=== PATIENT | female | born 1950 | race Asian ===

== ENCOUNTER 2019-03-21 09:31 | Observation (INO) | payer OTHER ==
[2019-03-21] MEDS: LACTATED RINGER'S 1,000 ML IV ×3 (11:01→23:51)
[2019-03-21] MEDS ORDERED: PROPOFOL 20 ML (11:27)
[2019-03-21] MEDS ORDERED: CEFAZOLIN 1 GM INJ (11:27)
[2019-03-21] MEDS ORDERED: ONDANSETRON 4 MG INJ (11:28)
[2019-03-21] MEDS ORDERED: FENTAnyl 50 MCG/ML VIAL (11:28)
[2019-03-21] MEDS ORDERED: MIDAZOLAM 1 MG/ML 2 ML INJ (11:28)
[2019-03-21] MEDS ORDERED: KETOROLAC 30 MG INJ (11:28)
[2019-03-21] MEDS ORDERED: PHENYLephrine (100 MCG/ML) 10ML SYG (12:33)
[2019-03-21] MEDS ORDERED: HYDROmorphONE 1 MG/5 ML IV SYRINGE IV (13:30)
[2019-03-21] MEDS: FENTAnyl 50 MCG/ML VIAL IV (13:48)
[2019-03-21] MEDS: ONDANSETRON 4 MG INJ IV (14:15)
[2019-03-21] MEDS: ACETAMINOPHEN 500 MG TAB PO (18:14)
[2019-03-21] MEDS ORDERED: ACETAMINOPHEN 325 MG TAB PO (18:30)
[2019-03-22] MEDS: LACTATED RINGER'S 1,000 ML IV (09:00)
== END 2019-03-22 11:20 | disposition home or self-care (01) ==
LOC: SDS 09:31 → 6WM 17:03
DX: N85.8 Other specified noninflammatory disorders of uterus (principal); N95.0 Postmenopausal bleeding
CPT/HCPCS: 58558; 88305; 93005; G0378